=== PATIENT | male | born 2000 | race Hispanic/Latino ===

== ENCOUNTER 2024-01-29 19:08 | Emergency (ER) | payer BC, OTHER ==
[~2024-01-29] VITALS: Ht 182.9 cm; Wt 81.6 kg
[2024-01-29 19:21] VITALS: PULSE 79; RESP 18; TEMP 98.2; O2SAT 98
[2024-01-29] MEDS ORDERED: TRAMADOL HCL 50 MG TAB PO STA (19:23)
== END 2024-01-29 21:55 | disposition home or self-care (01) ==
LOC: ER 19:18
DX: M79.662 Pain in left lower leg (principal); X50.1XXA Overexertion from prolonged static or awkward postures, initial encounter; Y93.68 Activity, volleyball (beach) (court); Y92.318 Other athletic court as the place of occurrence of the external cause
CPT/HCPCS: 99283